=== PATIENT | female | born 2000 | race Caucasian/White ===

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

== ENCOUNTER 2018-01-17 19:05 | Emergency (ER) | payer MEDICAID ==
[~2018-01-17] VITALS: Ht 162.6 cm; Wt 55.0 kg
[2018-01-17 20:21] VITALS: BP 116/76; PULSE 89; TEMP 98.6; O2SAT 100
[2018-01-17 21:13] LABS: AMORPHOUS SEDIMENT, URINE RARE; BILIRUBIN, URINE NEG (NEG); BLOOD, URINE NEG (NEG); GLUCOSE,URINE NEG (NEG); KETONE, URINE NEG (NEG); NITRITE,URINE NEG (NEG); PH, URINE 7.5 (5.0-8.5); SQUAMOUS EPITHELIAL CELL URINE 7 /hpf (0-5); URINE COLOR LIGHT-YELLOW (YELLW/STRAW); URINE LEUKOCYTE ESTERASE NEG (NEG)
--- NOTE | 2018-01-17 22:51 | PD ---
HPI Chief Complaint: Complaint Time Seen by Provider: 22:36 Travel History International Travel<30 days: No Contact w/Intl Traveler<30days: No Traveled to known affect area: No History of Present Illness HPI This patient was examined in the presence of a female nurse at all times. 17- year-old female presents for evaluation of abdominal discomfort and vaginal discharge. She reports over the past 2 weeks she has had an intermittent crampy pain in her lower abdomen which she says most feels like menstrual cramps. Today she noticed white discharge and this is what prompted evaluation. She reports associated vaginal itching and irritation, worse when she is wearing tight fitting clothing. She endorses increased urinary frequency. Denies nausea, vomiting, diarrhea, constipation, fevers, chills, dysuria, flank pain. She reports that she is sexually active with one new male partner over the past 2 months. She has no other complaints at this time. PFSH Past Medical History Anxiety: Yes Developmental Delay: No Diminished Hearing: No Reproductive: Yes (OVARIAN CYST) Immunizations Current: Yes ?: Unknown : 0 Ovarian Cysts: Yes Past Surgical History Surgical History: No Previous Surgery Social History Alcohol Use: Yes Tobacco Use: Yes Substance Use: No Allergies-Medications (Allergen,Severity, Reaction): Coded Allergies: No Known Allergies (Verified Adverse Reaction, Unknown, 01/17/18) Reported Meds & Prescriptions Reported Meds & Active Scripts Active Flagyl (Metronidazole) 500 Mg Tab 500 Mg PO BID 7 Days Review of Systems Except as stated in HPI: all other systems reviewed are Neg Physical Exam Narrative Examined in the presence of a female nurse at all times GENERAL: Well-developed well-nourished female no acute distress SKIN: Warm and dry. HEAD: Atraumatic. Normocephalic. EYES: Pupils equal and round. No scleral icterus. No injection or drainage. ENT: No nasal bleeding or discharge. Mucous membranes pink and moist. NECK: Trachea midline. No JVD. CARDIOVASCULAR: Regular rate and rhythm. No murmur appreciated. RESPIRATORY: No accessory muscle use. Clear to auscultation. Breath sounds equal bilaterally. GASTROINTESTINAL: Abdomen soft mild right lower quadrant tenderness without guarding. No CVA tenderness. Pelvic examination the presence of a female nurse: There is some thin white discharge noted in the vaginal canal. There is no cervical motion tenderness. There is no adnexal tenderness. MUSCULOSKELETAL: No obvious deformities. No clubbing. No cyanosis. No edema. NEUROLOGICAL: Awake and alert. No obvious cranial nerve deficits. Motor grossly within normal limits. Normal speech. Data Data Last Documented VS Vital Signs Date Time Temp Pulse Resp B/P (MAP) Pulse Ox O2 Delivery O2 Flow Rate FiO2 01/17/18 23:36 01/17/18 20:21 98.6 89 100 Orders Orders Urinalysis - C+S If Indicated (01/17/18 20:38) Ed Urine Pregnancytest Poc (01/17/18 20:38) Gc And Chlamydia Pcr (01/17/18 22:47) Wet Prep Profile (01/17/18 22:47) Ketorolac Inj (Toradol Inj) (01/17/18 23:15) Ed Discharge Order (01/17/18 23:38) Labs Laboratory Tests Test 01/17/18 20:42 01/17/18 23:05 Urine Color LIGHT-YELLOW Urine Turbidity CLEAR Urine pH 7.5 Urine Specific [place] 1.013 Urine Protein NEG mg/dL Urine Glucose (UA) NEG mg/dL Urine Ketones NEG mg/dL Urine Occult Blood NEG Urine Nitrite NEG Urine Bilirubin NEG Urine Urobilinogen LESS THAN 2.0 MG/DL Urine Leukocyte Esterase NEG Urine WBC LESS THAN 1 /hpf Urine Squamous Epithelial Cells 7 /hpf Urine Amorphous Sediment RARE Microscopic Urinalysis Comment CULT NOT INDICATED Clue Cells (Wet Prep) PRESENT Vaginal Trichomonas (Wet Prep) NONE SEEN Vaginal Yeast (Wet Prep) NONE SEEN MDM Medical Decision Making Medical Screen Exam Complete: Yes Emergency Medical Condition: Yes Medical Record Reviewed: Yes Differential Diagnosis Vaginitis, vaginosis, cervicitis, pelvic inflammatory disease Narrative Course 17-year-old female with intermittent cramping sensation in the pelvic region for the past few weeks, now with 1 day history of itchy white vaginal discharge. Physical examination is reassuring. She had very mild right lower quadrant tenderness however her history is not at all concerning for appendicitis. On pelvic examination she has no adnexal tenderness or cervical motion tenderness. There was thin white discharge noted in the vaginal canal. Wet prep and Chlamydia gonorrhea probe have been performed. Urinalysis is unremarkable. Urine test is negative. Toradol has been ordered. Wet prep is positive for clue cells consistent with bacterial vaginosis. The patient will be treated with Flagyl. It should be noted that the patient came with her boyfriend but she requested that no information be discussed with him in the room and therefore he was asked to leave the room during history and examination. Diagnosis Primary Impression: Bacterial vaginosis Additional Instructions: Medication as prescribed. Follow-up with primary care physician. Return for any emergent medical conditions. Med/Other Pt SpecificInfo: Prescription(s) given Scripts Metronidazole (Flagyl) 500 Mg Tab 500 MG PO BID for Infection for 7 Days, #14 TAB 0 Refills Prov: Nakul Urias MD 01/17/18 Disposition: 01 DISCHARGE HOME Condition: Stable Dalton Mendez Jan 17, 2018 22:51
[2018-01-17] MEDS ORDERED: KETOROLAC TROMETHAMINE 60 MG/2 ML (IM) VIAL IM ONE (23:15)
[2018-01-17] MEDS ORDERED: METR-1 PO (23:37)
== END 2018-01-18 00:07 | disposition home or self-care (01) ==
LOC: NEPD 19:05
DX: N76.0 Acute vaginitis (principal); B96.89 Other specified bacterial agents as the cause of diseases classified elsewhere
CPT/HCPCS: 81001; 84703; 87210; 87491; 87591; 99284